=== PATIENT | male | born 1980 | race Caucasian/White ===

== ENCOUNTER 2023-03-30 08:12 | Emergency (ER) | payer MEDICAID, OTHER ==
[~2023-03-30] VITALS: Ht 182.9 cm; Wt 93.0 kg
[2023-03-30] MEDS ORDERED: GUAI-671 PO (08:32)
[2023-03-30] MEDS ORDERED: OSEL75CA PO (08:32)
[2023-03-30 08:41] VITALS: BP 112/64; TEMP 98.5; O2SAT 98
== END 2023-03-30 08:42 | disposition home or self-care (01) ==
LOC: ER 08:18
DX: J11.1 Influenza due to unidentified influenza virus with other respiratory manifestations (principal)